=== PATIENT | female | born 1965 | race Caucasian/White ===

== ENCOUNTER 2024-12-24 17:09 | Inpatient (IN) | payer OTHER ==
[~2024-12-24] VITALS: Ht 162.6 cm; Wt 80.7 kg
[2024-12-24 18:52] VITALS: BP 134/68; PULSE 61; RESP 18; TEMP 98.1; O2SAT 97
[2024-12-24 20:00] VITALS: BP 144/68; PULSE 65; RESP 18; TEMP 98.2; O2SAT 98
[2024-12-24] MEDS ORDERED: ACETAMINOPHEN 325 MG TABLET PO PRN (20:00)
[2024-12-24 20:05] VITALS: BP 144/68; PULSE 65; RESP 18; TEMP 98.2; O2SAT 98
[2024-12-24] MEDS ORDERED: ALBUTEROL SULFATE HFA 90 MCG/PUFF 8 GM INHALER IH PRN (20:15)
[2024-12-24] MEDS: ETHYL ALCOHOL 62% ANTISEPTIC NASAL SANITIZER 0.6 ML AMPUL NASAL SCH (20:31)
[2024-12-24] MEDS: ATORVASTATIN CALCIUM 40 MG TABLET PO SCH (20:32)
[2024-12-24] MEDS: DOCUSATE SODIUM 100 MG CAPSULE PO SCH (20:32)
[2024-12-24] MEDS: SENNOSIDES 8.6 MG TABLET PO SCH (20:33)
[2024-12-24] MEDS: METOPROLOL TARTRATE 25 MG TABLET PO SCH (20:33)
[2024-12-24] MEDS: INFLUENZA VIRUS VACCINE TVS (6MO+) 2024-25/PF 45 MCG/0.5 ML SYRINGE IM. ONE (23:30)
[2024-12-24] MEDS: PNEUMOCOCCAL VACCINE POLYVALENT 0.5 ML SYRINGE [PPSV23] IM. ONE (23:30)
[2024-12-25 00:17] VITALS: O2SAT 98
[2024-12-25 00:21] LABS: GLUCOMETER DEV NAME(LOC) 2WR.2B; GLUCOSE,POINT OF CARE 109 MG/DL (70-110)
[2024-12-25] MEDS: LEVOTHYROXINE SODIUM 75 MCG TABLET PO SCH (06:34)
[2024-12-25 06:36] LABS: GLUCOMETER DEV NAME(LOC) 2WR.1D; GLUCOSE,POINT OF CARE 121 MG/DL (70-110)
[2024-12-25 08:00] VITALS: BP 148/63; PULSE 68; RESP 17; TEMP 97.8; O2SAT 100
[2024-12-25] MEDS: ASPIRIN 81 MG CHEWABLE TABLET PO SCH (08:17)
[2024-12-25] MEDS: ENOXAPARIN SODIUM 40 MG/0.4 ML PF SYRINGE SQ SCH (08:18)
[2024-12-25] MEDS: FAMOTIDINE 20 MG TABLET PO SCH (08:18)
[2024-12-25 08:52] LABS: EOSINOPHILS % (AUTO) 4.1 % (1.0-6.0); HEMATOCRIT 43.2 % (36-46); HEMOGLOBIN 14.3 g/dL (12.0-16.0); LYMPHOCYTES # (AUTO) 2.8 K/uL (1.0-4.8); LYMPHOCYTES % (AUTO) 26.1 % (22.0-44.0); MEAN CORPUSCULAR HEMOGLOBIN 32.4 pg (26.0-34.0); MEAN CORPUSCULAR HGB CONC 33.1 G/dL (31.0-37.0); MEAN CORPUSCULAR VOLUME 98 fL (80-100); MONOCYTES # (AUTO) 0.5 K/uL (0.1-1.0); MONOCYTES % (AUTO) 5.1 % (2.0-9.0); NEUTROPHILS # (AUTO) 6.7 K/uL (1.8-7.7); NEUTROPHILS % (AUTO) 63.7 % (40.0-70.0); PLATELET COUNT (AUTO) 207 K/uL (150-450); RED BLOOD CELL COUNT(AUTO) 4.41 MIL/uL (4.00-5.20); RED CELL DISTRIBUTION WIDTH 14.2 % (11.5-14.5); WHITE BLOOD COUNT (AUTO) 10.6 K/uL (4.5-11.0)
[2024-12-25 09:11] LABS: ALBUMIN 3.7 g/dL (3.4-5.0); BILIRUBIN,TOTAL 0.5 mg/dL (0.1-1.0); CALCIUM, TOTAL 9.1 mg/dL (8.8-10.5); CREATININE 1.28 mg/dL (0.60-1.30); POTASSIUM 3.8 mmol/L (3.5-5.1); TOTAL PROTEIN, SERUM 7.1 g/dL (6.4-8.2)
[2024-12-25] MEDS: SPIRONOLACTONE 25 MG TABLET PO SCH (09:14)
[2024-12-25] MEDS: ACETAMINOPHEN 325 MG TABLET PO PRN (17:05)
[2024-12-25] MEDS: MetFORMIN HCL 500 MG ER TABLET PO SCH (17:05)
[2024-12-25 17:21] LABS: GLUCOMETER DEV NAME(LOC) 2WR.1D; GLUCOSE,POINT OF CARE 109 MG/DL (70-110)
[2024-12-25 20:02] VITALS: BP 135/84; PULSE 71; RESP 18; TEMP 97.9; O2SAT 97
[2024-12-25 22:16] VITALS: O2SAT 97
[2024-12-26 06:35] LABS: GLUCOMETER DEV NAME(LOC) 2WR.1D; GLUCOSE,POINT OF CARE 111 MG/DL (70-110)
[2024-12-26] MEDS ORDERED: ALBU18HF12 IH (07:37)
[2024-12-26] MEDS ORDERED: BECL10.62 IH (07:37)
[2024-12-26] MEDS ORDERED: IBUP-1493 PO (07:37)
[2024-12-26 08:00] VITALS: BP 161/76; PULSE 62; RESP 19; TEMP 97.7; O2SAT 98
[2024-12-26] MEDS: DOCUSATE SODIUM 250 MG CAPSULE PO SCH (08:31)
[2024-12-26 08:38] VITALS: O2SAT 98
[2024-12-26 09:00] VITALS: BP 146/71; PULSE 64; RESP 18; O2SAT 98
[2024-12-26 17:16] LABS: GLUCOMETER DEV NAME(LOC) 2WR.1D; GLUCOSE,POINT OF CARE 120 MG/DL (70-110)
[2024-12-26 20:40] VITALS: BP 145/105; PULSE 68; RESP 18; TEMP 98.2; O2SAT 98
[2024-12-26 21:00] VITALS: O2SAT 98
[2024-12-27] MEDS ORDERED: DOCUSATE SODIUM 283 MG/5 ML MINI-ENEMA PR PRN (01:45)
[2024-12-27 06:41] LABS: GLUCOMETER DEV NAME(LOC) 2WR.2B; GLUCOSE,POINT OF CARE 118 MG/DL (70-110)
[2024-12-27 08:30] VITALS: BP 153/74; PULSE 72; RESP 20; TEMP 98.2; O2SAT 100
[2024-12-27 09:07] VITALS: O2SAT 100
[2024-12-27] MEDS: AmLODIPine BESYLATE 2.5 MG TABLET PO SCH (11:32)
[2024-12-27] MEDS: FLUoxetine HCL 10 MG CAPSULE PO SCH (11:36)
[2024-12-27 17:36] LABS: GLUCOMETER DEV NAME(LOC) 2WR.2B; GLUCOSE,POINT OF CARE 102 MG/DL (70-110)
[2024-12-27 20:00] VITALS: BP 155/76; PULSE 65; RESP 20; TEMP 98; O2SAT 99
[2024-12-27] MEDS: SENNOSIDES 8.6 MG TABLET PO SCH (21:23)
[2024-12-28 07:00] LABS: GLUCOMETER DEV NAME(LOC) 2WR.1D; GLUCOSE,POINT OF CARE 101 MG/DL (70-110)
[2024-12-28 08:15] VITALS: BP 140/60; PULSE 65; RESP 16; TEMP 98.5; O2SAT 96
[2024-12-28 15:36] VITALS: O2SAT 96
[2024-12-28 17:31] LABS: GLUCOMETER DEV NAME(LOC) 2WR.1D; GLUCOSE,POINT OF CARE 105 MG/DL (70-110)
[2024-12-28 20:00] VITALS: BP 137/71; PULSE 59; RESP 18; TEMP 98.3; O2SAT 96
[2024-12-29 06:51] LABS: GLUCOMETER DEV NAME(LOC) 2WR.1D; GLUCOSE,POINT OF CARE 118 MG/DL (70-110)
[2024-12-29 08:00] VITALS: BP 157/68; PULSE 73; RESP 16; TEMP 97.9; O2SAT 96
[2024-12-29 09:56] VITALS: BP 147/89; PULSE 56; RESP 16
[2024-12-29 21:54] VITALS: BP 128/81; PULSE 68; RESP 18; TEMP 98; O2SAT 100
[2024-12-29] MEDS: CALCIPOTRIENE 0.005% 60 GM CREAM TP SCH (21:58)
[2024-12-30] VITALS (7 sets, daily range): BP systolic 131–140; BP diastolic 54–64; PULSE 54–66; RESP 16–19; TEMP 97.4–98.1; O2SAT 95–100
[2024-12-30] MEDS: DOCUSATE SODIUM 283 MG/5 ML MINI-ENEMA PR SCH (06:07)
[2024-12-30 07:25] LABS: GLUCOMETER DEV NAME(LOC) 2WR.1D; GLUCOSE,POINT OF CARE 124 MG/DL (70-110)
[2024-12-31 06:55] LABS: GLUCOMETER DEV NAME(LOC) 2WR.2B; GLUCOSE,POINT OF CARE 122 MG/DL (70-110)
[2024-12-31 08:20] VITALS: BP 128/66; PULSE 62; RESP 17; TEMP 97.1; O2SAT 99
[2024-12-31 20:00] VITALS: BP 132/59; PULSE 69; RESP 18; TEMP 98.2; O2SAT 95
[2024-12-31 21:49] VITALS: BP 126/56; PULSE 69; RESP 17; TEMP 98.2; O2SAT 99
[2025-01-01 07:56] LABS: GLUCOMETER DEV NAME(LOC) 2WR.1D; GLUCOSE,POINT OF CARE 123 MG/DL (70-110)
[2025-01-01 08:00] VITALS: BP 126/56; PULSE 67; RESP 17; TEMP 97.6; O2SAT 99
[2025-01-01 19:50] VITALS: BP 117/50; PULSE 61; RESP 18; TEMP 97.9; O2SAT 61; O2SAT 96
[2025-01-01 22:06] VITALS: BP 117/50; PULSE 61; RESP 18; TEMP 97.6; O2SAT 96
[2025-01-02 02:46] VITALS: O2SAT 96
[2025-01-02 07:05] LABS: GLUCOMETER DEV NAME(LOC) 2WR.1D; GLUCOSE,POINT OF CARE 119 MG/DL (70-110)
[2025-01-02 08:00] VITALS: O2SAT 97
[2025-01-02 08:20] VITALS: BP 127/60; PULSE 67; RESP 18; TEMP 97.2; O2SAT 97
[2025-01-02 20:00] VITALS: O2SAT 97
[2025-01-02 21:14] VITALS: BP 137/65; PULSE 58; RESP 19; TEMP 97.6; O2SAT 97
[2025-01-03 07:21] LABS: GLUCOMETER DEV NAME(LOC) 2WR.1D; GLUCOSE,POINT OF CARE 116 MG/DL (70-110)
[2025-01-03 08:00] VITALS: BP 125/57; PULSE 65; RESP 16; TEMP 98.2; O2SAT 95
[2025-01-03 09:41] VITALS: O2SAT 97
[2025-01-03 20:00] VITALS: BP 140/69; PULSE 61; RESP 18; TEMP 98.2; O2SAT 98
[2025-01-04 06:46] LABS: GLUCOMETER DEV NAME(LOC) 2WR.1D; GLUCOSE,POINT OF CARE 108 MG/DL (70-110)
[2025-01-04 08:00] VITALS: BP 151/72; PULSE 19; PULSE 63; RESP 19; TEMP 98.2; O2SAT 100
[2025-01-04 19:28] VITALS: BP 136/50; PULSE 61; RESP 18; TEMP 98; O2SAT 97
[2025-01-05 02:37] VITALS: O2SAT 97
[2025-01-05 06:36] LABS: GLUCOMETER DEV NAME(LOC) 2WR.1D; GLUCOSE,POINT OF CARE 126 MG/DL (70-110)
[2025-01-05 07:30] VITALS: BP 155/64; PULSE 66; RESP 18; TEMP 98.5; O2SAT 96
[2025-01-05 15:22] VITALS: BP 122/55; PULSE 60; O2SAT 97
[2025-01-05 15:24] VITALS: O2SAT 97
[2025-01-05 19:29] VITALS: BP 140/59; PULSE 62; RESP 18; TEMP 97.4; O2SAT 97
[2025-01-05 22:24] VITALS: O2SAT 97
[2025-01-06 06:46] LABS: GLUCOMETER DEV NAME(LOC) 2WR.1D; GLUCOSE,POINT OF CARE 101 MG/DL (70-110)
[2025-01-06 08:00] VITALS: BP 139/56; PULSE 61; RESP 18; TEMP 98.6; O2SAT 99
[2025-01-06 20:00] VITALS: BP 138/67; PULSE 64; RESP 19; TEMP 97.4; O2SAT 99
[2025-01-07] MEDS ORDERED: CALC60CR6 TP (03:59)
[2025-01-07] MEDS ORDERED: METF-81 PO (03:59)
[2025-01-07] MEDS ORDERED: SPIR-37 PO (03:59)
[2025-01-07] MEDS ORDERED: METO25 PO (03:59)
[2025-01-07] MEDS ORDERED: ATOR40TA28 PO (03:59)
[2025-01-07] MEDS ORDERED: ASPI-1450 PO (03:59)
[2025-01-07] MEDS ORDERED: LEVO75 PO (03:59)
[2025-01-07] MEDS ORDERED: FAMO20 PO (03:59)
[2025-01-07 07:25] LABS: GLUCOMETER DEV NAME(LOC) 2WR.2B; GLUCOSE,POINT OF CARE 100 MG/DL (70-110)
[2025-01-07 08:00] VITALS: BP 128/48; PULSE 54; RESP 18; TEMP 98; O2SAT 99
[2025-01-07 08:50] VITALS: BP 147/67; PULSE 62; RESP 18; TEMP 97.5; O2SAT 100
[2025-01-07 20:00] VITALS: BP 136/59; PULSE 59; RESP 18; TEMP 98.1; O2SAT 95
[2025-01-07 20:46] VITALS: BP 124/61; PULSE 60
[2025-01-08 00:26] VITALS: BP 124/61; PULSE 60; RESP 18; TEMP 98.1; O2SAT 100
[2025-01-08] MEDS ORDERED: ATOR40TA28 PO (03:15)
[2025-01-08] MEDS ORDERED: AMLO2.5T96 PO ×2 (03:15→10:58)
[2025-01-08 07:05] LABS: GLUCOMETER DEV NAME(LOC) 2WR.1D; GLUCOSE,POINT OF CARE 108 MG/DL (70-110)
[2025-01-08 08:00] VITALS: BP 125/49; PULSE 68; RESP 18; TEMP 97.4; O2SAT 100
[2025-01-08 08:25] VITALS: BP 137/65; PULSE 55; RESP 18
[2025-01-08 08:26] VITALS: PULSE 64
[2025-01-08 09:31] VITALS: BP 137/65; PULSE 64; RESP 18; TEMP 97.4; O2SAT 100
[2025-01-08] MEDS ORDERED: SENN-374 PO (10:58)
[2025-01-08] MEDS ORDERED: CALC60CR6 TP (10:58)
[2025-01-08] MEDS ORDERED: FLUO-341 PO (10:58)
[2025-01-08] MEDS ORDERED: ASPI-1450 PO (10:58)
[2025-01-08] MEDS ORDERED: FAMO20 PO (10:58)
[2025-01-08] MEDS ORDERED: DOCU-412 PO (10:58)
[2025-01-08] MEDS ORDERED: METF-81 PO (10:58)
[2025-01-08] MEDS ORDERED: ATOR40TA71 PO (10:58)
[2025-01-08] MEDS ORDERED: SPIR-37 PO (10:58)
[2025-01-08] MEDS ORDERED: METO25 PO (10:58)
[2025-01-08] MEDS ORDERED: LEVO75 PO (10:58)
== END 2025-01-08 17:40 | disposition home health service (06) | DRG 58 ==
LOC: 2WR 18:25
PROVIDERS: ADMIT Physical Medicine & Rehabilitation; ATTEND Physical Medicine & Rehabilitation
DX: I69.351 Hemiplegia and hemiparesis following cerebral infarction affecting right dominant side (principal); I66.9 Occlusion and stenosis of unspecified cerebral artery; R13.11 Dysphagia, oral phase; R41.4 Neurologic neglect syndrome; R47.01 Aphasia; R13.12 Dysphagia, oropharyngeal phase; R48.2 Apraxia; E66.9 Obesity, unspecified; R73.03 Prediabetes; E03.9 Hypothyroidism, unspecified; E78.5 Hyperlipidemia, unspecified; F19.10 Other psychoactive substance abuse, uncomplicated; N18.9 Chronic kidney disease, unspecified; I12.9 Hypertensive chronic kidney disease with stage 1 through stage 4 chronic kidney disease, or unspecified chronic kidney disease; J45.909 Unspecified asthma, uncomplicated; F32.A Depression, unspecified; Z74.09 Other reduced mobility; F10.10 Alcohol abuse, uncomplicated; F15.10 Other stimulant abuse, uncomplicated; R15.9 Full incontinence of feces; R45.86 Emotional lability; R53.1 Weakness; Z87.891 Personal history of nicotine dependence; Z91.199 Patient's noncompliance with other medical treatment and regimen due to unspecified reason; Z90.49 Acquired absence of other specified parts of digestive tract; Z68.30 Body mass index [BMI] 30.0-30.9, adult
CPT/HCPCS: 74230; 80053; 82962; 85025; 87081; 92507; 92523; 92526; 92610; 92611; 93970; 97110; 97112; 97116; 97150; 97163; 97167; 97530; 97535; 99366; J1650